=== PATIENT | male | born 1965 | race Caucasian/White ===

== ENCOUNTER 2016-07-27 19:19 | Observation (INO) | payer BC ==
[~2016-07-27] VITALS: Ht 175.3 cm; Wt 91.2 kg
[2016-07-28] VITALS: BP 111/64
[2016-07-28 04:20] VITALS: BP 90/55
[2016-07-28 07:35] VITALS: BP 108/70
[2016-07-28 11:20] VITALS: BP 114/68
[2016-07-28] MEDS ORDERED: NORCO 5/3251 TABLET PO (15:14)
== END 2016-07-28 16:22 | disposition home or self-care (01) ==
LOC: EME 19:19 → 4EAST 22:00 → EDOF 22:00 → 4EAST 23:34
DX: S06.6X9A Traumatic subarachnoid hemorrhage with loss of consciousness of unspecified duration, initial encounter (principal); S00.11XA Contusion of right eyelid and periocular area, initial encounter; W11.XXXA Fall on and from ladder, initial encounter; Y93.9 Activity, unspecified; Y92.008 Other place in unspecified non-institutional (private) residence as the place of occurrence of the external cause; Y99.9 Unspecified external cause status; M54.5 Low back pain
CPT/HCPCS: 70450; 72100; 99281; 99285; G0378; J7042